=== PATIENT | male | born 1955 | race Caucasian/White ===

== ENCOUNTER 2018-04-27 22:23 | Observation (INO) | payer OTHER ==
--- NOTE | 2018-04-27 22:30 | PDOC ---
History of Present Illness - General Chief Complaint: Pain Stated Complaint: PAIN Time Seen by Provider: 04/27/18 22:27 History Source: Patient Exam Limitations: No Limitations - History of Present Illness Initial Comments: 62 yo M history HTN presents with L arm pain, fever. He states that he received a pneumonia shot 3 days ago. He states that the day after the shot, he started to feel pain in the upper arm. He has been having difficulty sleeping due to pain. He developed fever to 102 at home today. No respiratory symptoms, no dysuria, no abd pain. Past History - Past Medical History Allergies/Adverse Reactions: Allergies Allergy/AdvReac Type Severity Reaction Status Date / Time codeine Allergy Severe Vomiting Verified 04/27/18 22:28 Home Medications: Ambulatory Orders Bupropion HCl [Wellbutrin -] 100 mg PO DAILY 04/28/18 Gabapentin [Neurontin -] 300 mg PO BID 04/28/18 Losartan Potassium 0 mg PO DAILY 04/28/18 Asthma: Yes COPD: No HTN: Yes Other medical history: Gout - Suicide/Smoking/Psychosocial Hx Smoking History: Never smoked Have you smoked in the past 12 months: No Information on smoking cessation initiated: No Hx Alcohol Use: No Drug/Substance Use Hx: No Review of Systems - Review of Systems Able to Perform ROS?: Yes Comments:: GENERAL/CONSTITUTIONAL: +Fever/chills. No weakness. HEAD, EYES, EARS, NOSE AND THROAT: No change in vision. No ear pain or discharge. No sore throat. CARDIOVASCULAR: No chest pain or shortness of breath. RESPIRATORY: No cough, wheezing, or hemoptysis. GASTROINTESTINAL: No nausea, vomiting, diarrhea or constipation. GENITOURINARY: No dysuria, frequency, or change in urination. MUSCULOSKELETAL: +L upper arm swelling and pain. No neck or back pain. SKIN: No rash. NEUROLOGIC: No headache, vertigo, loss of consciousness, or change in strength/ sensation. ENDOCRINE: No increased thirst. No abnormal weight change. HEMATOLOGIC/LYMPHATIC: No anemia, easy bleeding, or history of blood clots. ALLERGIC/IMMUNOLOGIC: No hives or skin allergy. *Physical Exam - Vital Signs Last Vital Signs Temp Pulse Resp BP Pulse Ox 99.6 F 103 H 19 144/93 95 04/27/18 22:25 04/27/18 22:25 04/27/18 22:25 04/27/18 22:25 04/27/18 22:25 - Physical Exam Comments: GENERAL: Awake, alert, and fully oriented, in no acute distress. Obese. HEAD: No signs of trauma EYES: PERRLA, EOMI, sclera anicteric, conjunctiva clear ENT: Auricles normal inspection, hearing grossly normal, nares patent, oropharynx clear without exudates. Moist mucosa NECK: Normal ROM, supple, no lymphadenopathy, JVD, or masses LUNGS: Breath sounds equal, clear to auscultation bilaterally. No wheezes, and no crackles HEART: Regular rate and rhythm, normal S1 and S2, no murmurs, rubs or gallops ABDOMEN: Soft, nontender, normoactive bowel sounds. No guarding, no rebound. No masses EXTREMITIES: L deltoid and biceps muscles firm and tender to palpation, +edema. FROM. Warm to touch, but not erythematous. No crepitus noted. Remainder of extremities with normal range of motion, no edema. No clubbing or cyanosis. No cords, erythema, or tenderness. +Mild edema over the 2nd and 3rd MCP joints to the L hand (previous gout flare as per patient, not temporally related to the arm pain). NEUROLOGICAL: Cranial nerves II through XII grossly intact. Normal speech, normal gait. Motor and sensation intact SKIN: Diaphoretic, normal turgor, no rashes or lesions noted. Moderate Sedation - Procedure Monitoring Vital Signs: Procedure Monitoring Vital Signs Temperature 99.6 F 04/27/18 22:25 Pulse Rate 103 H 04/27/18 22:25 Respiratory Rate 19 04/27/18 22:25 Blood Pressure 144/93 04/27/18 22:25 O2 Sat by Pulse Oximetry (%) 95 04/27/18 22:25 ED Treatment Course - LABORATORY CBC & Chemistry Diagram: 04/27/18 23:00 04/27/18 23:00 Medical Decision Making - Medical Decision Making 04/27/18 22:46 Suspect an intramuscular infection related to recent injection. No signs of necrotizing fasciitis on exam. Will obtain XR to r/o subcutaneous gas. 04/28/18 00:[address] Cruz, hospitalist. I will give ceftriaxone in addition to the clinda per his request. *DC/Admit/Observation/Transfer Diagnosis at time of Disposition: Myositis Qualifiers: Myositis type: infective Myositis location: shoulder Laterality: left Qualified Code(s): M60.012 - Infective myositis, left shoulder - Discharge Dispostion Condition at time of disposition: Stable Decision to Admit order: Yes - Referrals - Patient Instructions - Post Discharge Activity
[2018-04-27] MEDS ORDERED: SODIUM CHLORIDE 1,000 ML IV STA (22:38)
[2018-04-27] MEDS ORDERED: CLINDAMYCIN 600MG PREMIX IVPB 600 MG/50 ML BAG IVPB ONE (23:16)
[2018-04-27] MEDS ORDERED: CLINDAMYCIN PHOSPHATE 600 MG/4 ML VIAL ONE (23:29)
[2018-04-27 23:32] LABS: BASO % 0.1 % (0-2.0); EOS % 2.3 % (0-4.5); HEMOGLOBIN 13.5 GM/dl (11.7-16.9); LYMPH % 8.3 % (8-40); MCH 27.4 pg (25.7-33.7); MCHC 32.2 g/dl (32.0-35.9); MEAN CELL VOLUME 84.9 fl (80-96); MEAN PLT VOLUME 7.9 fl (7.5-11.1); MONO % 10.6 % (3.8-10.2); NEUT % 78.7 % (42.8-82.8); PLATELET COUNT 233 K/MM3 (134-434); RBC 4.95 M/mm3 (4.00-5.60); RDW 14.8 % (11.9-15.9); WHITE BLOOD COUNT 8.7 K/mm3 (4.0-10.8)
[2018-04-27 23:36] LABS: ALBUMIN 4.1 g/dl (3.4-5.0); ALK PHOS 83 U/L (45-117); ANION GAP 13 MMOL/L (8-16); BILIRUBIN,TOTAL 1.7 mg/dl (0.2-1); BLOOD UREA NITROGEN 13 mg/dl (7-18); CALCIUM 9.2 mg/dl (8.5-10); CHLORIDE 98 mmol/L (98-107); CO2 24 mmol/L (21-32); CREATININE 0.9 mg/dl (0.55-1.3); GLUCOSE,RANDOM 132 mg/dl (74-106); POTASSIUM 3.8 mmol/L (3.5-5.1); SGOT/AST 31 U/L (15-37); SGPT/ALT 35 U/L (13-61); SODIUM 135 mmol/L (136-145)
[2018-04-28] MEDS ORDERED: CEFTRIAXONE 1,000 MG in DEXTROSE 5%-WATER - 50 ML IVPB ONE (00:28)
[2018-04-28] MEDS ORDERED: ACETAMINOPHEN 325 MG TABLET (FP) PO PRN (00:30)
[2018-04-28] MEDS ORDERED: cefTRIAXone SODIUM 1 GM VIAL ONE (00:35)
[2018-04-28 02:17] VITALS: BMI 44.9
--- NOTE | 2018-04-28 08:02 | HP ---
CHIEF COMPLAINT: PCP: HISTORY OF PRESENT ILLNESS: ER course was notable for: (1) (2) (3) Recent Travel: PAST MEDICAL HISTORY: PAST SURGICAL HISTORY: Social History: Smoking: Alcohol: Drugs: Family History: Allergies codeine Allergy (Severe, Verified 04/27/18 22:28) Vomiting HOME MEDICATIONS: Home Medications Medication Instructions Recorded Bupropion HCl [Wellbutrin -] 100 mg PO DAILY 04/28/18 Gabapentin [Neurontin -] 300 mg PO BID 04/28/18 Losartan Potassium 0 mg PO DAILY 04/28/18 REVIEW OF SYSTEMS CONSTITUTIONAL: Absent: fever, chills, diaphoresis, generalized weakness, malaise, loss of appetite, weight change HEENT: Absent: rhinorrhea, nasal congestion, throat pain, throat swelling, difficulty swallowing, mouth swelling, ear pain, eye pain, visual changes CARDIOVASCULAR: Absent: chest pain, syncope, palpitations, irregular heart rate, lightheadedness , peripheral edema RESPIRATORY: Absent: cough, shortness of breath, dyspnea with exertion, orthopnea, wheezing, stridor, hemoptysis GASTROINTESTINAL: Absent: abdominal pain, abdominal distension, nausea, vomiting, diarrhea, constipation, melena, hematochezia GENITOURINARY: Absent: dysuria, frequency, urgency, hesitancy, hematuria, flank pain, genital pain MUSCULOSKELETAL: Absent: myalgia, arthralgia, joint swelling, back pain, neck pain SKIN: Absent: rash, itching, pallor HEMATOLOGIC/IMMUNOLOGIC: Absent: easy bleeding, easy bruising, lymphadenopathy, frequent infections ENDOCRINE: Absent: unexplained weight gain, unexplained weight loss, heat intolerance, cold intolerance NEUROLOGIC: Absent: headache, focal weakness or paresthesias, dizziness, unsteady gait, seizure, mental status changes, bladder or bowel incontinence PSYCHIATRIC: Absent: anxiety, depression, suicidal or homicidal ideation, hallucinations. PHYSICAL EXAMINATION Vital Signs - 24 hr 04/27/18 04/27/18 04/28/18 22:25 22:45 00:31 Temperature 99.6 F 98.6 F Pulse Rate 103 H 67 Respiratory 19 19 Rate Blood Pressure 144/93 136/67 O2 Sat by Pulse 95 96 Oximetry (%) 04/28/18 04/28/18 04/28/18 01:50 01:54 04:31 Temperature 98.6 F 97.7 F Pulse Rate 67 65 Respiratory 19 18 Rate Blood Pressure 136/67 142/62 O2 Sat by Pulse 97 97 Oximetry (%) 04/28/18 06:02 Temperature Pulse Rate Respiratory Rate Blood Pressure O2 Sat by Pulse 98 Oximetry (%) GENERAL: Awake, alert, and fully oriented, in no acute distress. HEAD: Normal with no signs of trauma. EYES: Pupils equal, round and reactive to light, extraocular movements intact, sclera anicteric, conjunctiva clear. No lid lag. EARS, NOSE, THROAT: Ears normal, nares patent, oropharynx clear without exudates. Moist mucous membranes. NECK: Normal range of motion, supple without lymphadenopathy, JVD, or masses. LUNGS: Breath sounds equal, clear to auscultation bilaterally. No wheezes, and no crackles. No accessory muscle use. HEART: Regular rate and rhythm, normal S1 and S2 without murmur, rub or gallop. ABDOMEN: Soft, nontender, not distended, normoactive bowel sounds, no guarding, no rebound, no masses. No hepatomegaly or splenomegaly. MUSCULOSKELETAL: Normal range of motion at all joints. No bony deformities or tenderness. No CVA tenderness. UPPER EXTREMITIES: 2+ pulses, warm, well-perfused. No cyanosis. No clubbing. No peripheral edema. LOWER EXTREMITIES: 2+ pulses, warm, well-perfused. No calf tenderness. No peripheral edema. NEUROLOGICAL: Cranial nerves II-XII intact. Normal speech. Normal gait. PSYCHIATRIC: Cooperative. Good eye contact. Appropriate mood and affect. SKIN: Warm, dry, normal turgor, no rashes or lesions noted, normal capillary refill. Laboratory Results - last 24 hr 04/27/18 04/27/18 04/27/18 23:00 23:00 23:00 WBC 8.7 RBC 4.95 Hgb 13.5 Hct 42.0 MCV 84.9 MCH 27.4 MCHC 32.2 RDW 14.8 Plt Count 233 MPV 7.9 Absolute Neuts (auto) 6.9 Neutrophils % 78.7 Lymphocytes % 8.3 Monocytes % 10.6 H Eosinophils % 2.3 Basophils % 0.1 Sodium 135 L Potassium 3.8 Chloride 98 Carbon Dioxide 24 Anion Gap 13 BUN 13 Creatinine 0.9 Creat Clearance w eGFR > 60 Random Glucose 132 H Lactic Acid Calcium 9.2 Total Bilirubin 1.7 H AST 31 ALT 35 Alkaline Phosphatase 83 Creatine Kinase 486 H Creatine Kinase Index 0.8 CK-MB (CK-2) 4.3 H Total Protein 7.0 Albumin 4.1 04/27/18 23:00 WBC RBC Hgb Hct MCV MCH MCHC RDW Plt Count MPV Absolute Neuts (auto) Neutrophils % Lymphocytes % Monocytes % Eosinophils % Basophils % Sodium Potassium Chloride Carbon Dioxide Anion Gap BUN Creatinine Creat Clearance w eGFR Random Glucose Lactic Acid 0.8 Calcium Total Bilirubin AST ALT Alkaline Phosphatase Creatine Kinase Creatine Kinase Index CK-MB (CK-2) Total Protein Albumin ASSESSMENT/PLAN:
[2018-04-28 09:02] VITALS: BP 145/83; PULSE 64; TEMP 98.2
[2018-04-28] MEDS ORDERED: buPROPion HCL 100 MG TABLET PO SCH (10:00)
[2018-04-28] MEDS ORDERED: LOSARTAN POTASSIUM 25 MG TABLET PO SCH (10:00)
[2018-04-28] MEDS ORDERED: GABAPENTIN 300 MG CAPSULE (FP) PO SCH (10:00)
--- NOTE | 2018-04-28 11:00 | HOSP ---
Subjective - Review of Symptoms Events since last encounter: Advised by nursing staff that patient eloped. It is estimated he left the floor sometime between 8:00am and 9:30am. Patient was not seen by this provider prior to his departure. Physical Examination Vital Signs: Vital Signs Temperature 98.2 F 04/28/18 08:00 Pulse Rate 64 04/28/18 08:00 Respiratory Rate 18 04/28/18 08:00 Blood Pressure 145/83 04/28/18 08:00 O2 Sat by Pulse Oximetry (%) 97 04/28/18 08:55 Labs: CBC, BMP 04/27/18 23:00 04/27/18 23:00
== END 2018-04-28 10:10 | disposition left against medical advice (07) ==
LOC: FER 22:23 → FM/S 23:48 → UNDOADMOB 04-28 00:42 → FM/S 04-28 00:42
PROVIDERS: ADMIT Internal Medicine; ATTEND Nurse Practitioner Acute Care
PROC: 3E03329 Introduction of Other Anti-infective into Peripheral Vein, Percutaneous Approach (ICD-10-PCS; principal; 2018-04-27)
PROC: 3E0337Z Introduction of Electrolytic and Water Balance Substance into Peripheral Vein, Percutaneous Approach (ICD-10-PCS; 2018-04-27)
DX: M60.012 Infective myositis, left shoulder (principal); I10 Essential (primary) hypertension; Z88.6 Allergy status to analgesic agent
CPT/HCPCS: 36415; 73060-TC-LT-FY; 80053; 82550; 82553; 83605; 85025; 85651; 86140; 87040; 99284-25; G0378; J7030

== ENCOUNTER 2018-04-28 13:20 | Inpatient (IN) | payer OTHER ==
--- NOTE | 2018-04-28 13:27 | PDOC ---
Attending Attestation - Resident Resident Name: Vicente Nelson - ED Attending Attestation I have performed the following: I have examined & evaluated the patient, The case was reviewed & discussed with the resident, I agree w/resident's findings & plan, Exceptions are as noted - HPI HPI: 04/28/18 15:40 62yo male with pneumococcal vaccine given on . Pt states saturday he developed fevers/sweats. Developed a pain to the L arm on saturday. States by saturday he was having diaphoresis in gnosticism and spiked a fever to 102. Pt was admitted last night to [facility] for iv abx. Pt had to leave today for a but returns still with pain and redness to LUE. On xray performed yesterday- lytic lesion to the L humerus. Pt denies fevers today. C/o sweating at night intermittently. Pt denies wt loss. No cp/sob. No abd pain. No n/v/d. Pt states he has had rib pain to L ribs since early last week. No cp. - Physicial Exam PE: 04/28/18 15:41 Gen: aaox3, nad, ambulatory with a steady gait Heart: +s1s2 reg, no chest wall ttp lungs: cta b/l abd: soft, nt/nd +bs, obese ext: LUE pulses intact, L mid-humerus shows redness, warmth, ttp- cellulitis, FROM of the arm, no shoulder ttp, no elbow ttp - Medical Decision Making 04/28/18 13:27 I, Dr. Cherry Romo, DO, attest that this document has been prepared under my direction and personally reviewed by me in its entirety. I further attest, that it accurately reflects all work, treatment, procedures and medical decision -making performed by me. 04/28/18 15:42 a/p: 62yo male with LUE cellulitis -start iv abx yesterday - received rocephin at 1am today, will give next dose of clinda CRP from yesterday was 9 no fever today will repeat labs, cxr, cultures pending concern for lytic lesion, will send electrophoresis panel will discuss with [facility] 04/28/18 15:46 microblog sent to [facility] for admission 04/28/18 16:18 resident discussed the case with Dr. Foote who accepts pt to service
--- NOTE | 2018-04-28 13:42 | PDOC ---
History of Present Illness - General Chief Complaint: Redness To Affected Area Stated Complaint: REVISIT FOR LEFT ARM REDNESS Time Seen by Provider: 04/28/18 13:22 History Source: Patient, Old Records Exam Limitations: No Limitations - History of Present Illness Initial Comments: HPI: 62 y/o male presenting to ED after leaving the [facility] med[facility]surg floor AMA to attend a . Pt has returned for re-admission. Received Rocephin and Clindamycin last night with concern for myositis versus cellulitis. Pt received PneumoVax in left deltoid last (24 Apr 2018). Expressed concern that the person administering the injection did not wear gloves, but did clean the area with an alcohol wipe. Reports no symptoms until Saturday (27 Apr 2018) when he developed fever (Tmax 102), chills, diaphoresis, and tenderness to left upper arm. Family reportedly noticed rash to face but pt unable to provide details. 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 - Denies recent travel, outdoor activity, wildlife exposure, or exotic pets Medical Hx: - HTN - Asthma - Obesity - Gout Past History - Past Medical History Allergies/Adverse Reactions: Allergies Allergy/AdvReac Type Severity Reaction Status Date / Time codeine AdvReac Severe Vomiting Verified 04/28/18 17:40 Home Medications: Ambulatory Orders Bupropion HCl [Wellbutrin -] 100 mg PO DAILY 04/28/18 Gabapentin [Neurontin -] 300 mg PO BID 04/28/18 Losartan Potassium 0 mg PO DAILY 04/28/18 Asthma: Yes COPD: No HTN: Yes - Suicide/Smoking/Psychosocial Hx Smoking History: Never smoked Have you smoked in the past 12 months: No Hx Alcohol Use: No Drug/Substance Use Hx: No Review of Systems - Review of Systems Able to Perform ROS?: Yes Comments:: In addition to that documented in the HPI above, the additional ROS was obtained : Constitutional: Endorses fevers and chills Eyes: Denies vision changes ENMT: Denies sore throat CV: Endorses pain to left side of chest Resp: Denies SOB GI: Denies vomiting or diarrhea : Denies painful urination MSK: Denies recent trauma Skin: Per HPI Neuro: Denies new numbness or tingling or weakness Endocrine: Denies polyuria Heme: Denies bleeding or bruising *Physical Exam - Vital Signs Last Vital Signs Temp Pulse Resp BP Pulse Ox 98.5 F 68 18 157/94 98 04/28/18 13:22 04/28/18 13:22 04/28/18 13:22 04/28/18 13:22 04/28/18 13:22 - Physical Exam Comments: Constitutional: Well-developed, well-nourished, obese male in no acute distress or obvious discomfort. Found sitting upright on edge of bed. Alert and oriented x4. Answered all questions appropriately and completely. Speech was non-labored , non-pressured. Head: Normocephalic. No obvious external signs of trauma. Eyes: Sclerae white. Ears: Hearing grossly intact. Nose: No nasal discharge. Neck: Supple, trachea is midline. Cardiovascular / Chest: Regular rate and regular rhythm. No murmur, rubs, clicks, or gallops. Peripheral pulses: radial pulses full. Diffuse tenderness to left anterior chest wall. Respiratory: Breathing unlabored. Equal chest rise and fall. Clear to auscultation bilaterally. No stridor, no wheezing, no rhonchi. Neuro: Alert and oriented. Moving all four extremities spontaneously. Gait normal. Skin: Erythema and warmth to left upper arm. No obvious wounds. No purulence. Psych: Affect: appropriate. Mood: normal. Moderate Sedation - Procedure Monitoring Vital Signs: Procedure Monitoring Vital Signs Temperature 98.5 F 04/28/18 13:22 Pulse Rate 68 04/28/18 13:22 Respiratory Rate 18 04/28/18 13:22 Blood Pressure 157/94 04/28/18 13:22 O2 Sat by Pulse Oximetry (%) 98 04/28/18 13:22 ED Treatment Course - LABORATORY CBC & Chemistry Diagram: 04/28/18 15:15 04/28/18 15:15 Medical Decision Making - Medical Decision Making *Reviewed vital signs, nursing notes, and prior visit documentation (if available). 62 y/o male returning to after leaving AMA to attend a . Lucency noted left humerus on plain film. CRP elevated with normal ESR. Will repeat CRP , CBC, and chemistries to trend. Rocephin received at 01:00 this AM. Repeat dose not indicated. Will order clindamycin for continuation of q8h dosing. Will order CXR to evaluate for additional lytic lesions. Additionally, will order [place]/Lambda chains and serum protein electrophoresis to evaluate for possible multiple myeloma. Noted Ca+ was within normal limits yesterday. CXR unremarkable for additional lytic lesions. CBC unremarkable for anemia or leukocytosis. CMP unremarkable for electrolyte derangement. LFTs not elevated. T. Bili mildly elevated, but downtrended from yesterday. Will defer to medicine team to trend. BUN and Cr at baseline. eGFR >60. 16:[address] Foote. Verbally appraised of the pts HPI, ED course, and current plan of management. Will follow on pending labs. *DC/Admit/Observation/Transfer Diagnosis at time of Disposition: Lytic bone lesions on xray Cellulitis Qualifiers: Site of cellulitis: extremity Site of cellulitis of extremity: upper extremity Laterality: left Qualified Code(s): L03.114 - Cellulitis of left upper limb - Discharge Dispostion Condition at time of disposition: Good Decision to Admit order: Yes - Referrals - Patient Instructions - Post Discharge Activity
[2018-04-28] MEDS ORDERED: CLINDAMYCIN 600MG PREMIX IVPB 600 MG/50 ML BAG IVPB ONE (14:01)
[2018-04-28] MEDS ORDERED: CLINDAMYCIN PHOSPHATE 600 MG/4 ML VIAL ONE (14:15)
[2018-04-28 15:51] LABS: HEMATOCRIT 40.1 % (35.4-49); MCH 27.5 pg (25.7-33.7); MCHC 32.5 g/dl (32.0-35.9); MEAN CELL VOLUME 84.7 fl (80-96); MEAN PLT VOLUME 8.5 fl (7.5-11.1); PLATELET COUNT 209 K/MM3 (134-434); RBC 4.74 M/mm3 (4.00-5.60); RDW 14.8 % (11.9-15.9); WHITE BLOOD COUNT 6.9 K/mm3 (4.0-10.8)
[2018-04-28 15:58] LABS: ALBUMIN 3.8 g/dl (3.4-5.0); ALK PHOS 76 U/L (45-117); ANION GAP 10 MMOL/L (8-16); BILIRUBIN,TOTAL 1.3 mg/dl (0.2-1); BLOOD UREA NITROGEN 14 mg/dl (7-18); CHLORIDE 101 mmol/L (98-107); CO2 25 mmol/L (21-32); CREATININE 0.8 mg/dl (0.55-1.3); GLUCOSE,RANDOM 113 mg/dl (74-106); MAGNESIUM 2.2 mg/dL (1.8-2.4); SGOT/AST 36 U/L (15-37); SGPT/ALT 30 U/L (13-61); SODIUM 136 mmol/L (136-145); TOT PROT 6.7 g/dl (6.4-8.2)
[2018-04-28] MEDS ORDERED: VANCOMYCIN HCL 1,500 MG in DEXTROSE 5%-WATER - 500 ML IVPB ONE (16:58)
[2018-04-28] MEDS ORDERED: PIPERACILLIN/TAZOB 4.5 GM 4.5 GM in DEXTROSE 5%-WATER 100 ML IVPB ONE (18:02)
--- NOTE | 2018-04-28 18:02 | HP ---
CHIEF COMPLAINT:left arm pain PCP: HISTORY OF PRESENT ILLNESS: 62yo man with gout reported getting pneumovax injection into left upper extremity this past , and the next day developed left arm pain, erythema , and saturday developed fever that he measured 102.2F. Pain was worse with movement of his arm. At worst pain was 9/10 or 10/10. 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 PAST SURGICAL HISTORY: left rotator cuff surgery 1 year ago, right knee replacement Social History: Smoking: no Alcohol: no Drugs: no Family History: mother with pancreatic cancer, father with heart disease Allergies codeine Adverse Reaction (Severe, Verified 04/28/18 17:40) Vomiting HOME MEDICATIONS: Home Medications Medication Instructions Recorded Bupropion HCl [Wellbutrin -] 100 mg PO DAILY 04/28/18 Gabapentin [Neurontin -] 300 mg PO BID 04/28/18 Losartan Potassium 0 mg PO DAILY 04/28/18 REVIEW OF SYSTEMS CONSTITUTIONAL: Absent: , generalized weakness, malaise, loss of appetite, weight change present- fever, chills, diaphoresis HEENT: Absent: rhinorrhea, nasal congestion, throat pain, throat swelling, difficulty swallowing, mouth swelling, ear pain, eye pain, visual changes CARDIOVASCULAR: Absent: chest pain, syncope, palpitations, irregular heart rate, lightheadedness , peripheral edema RESPIRATORY: Absent: cough, shortness of breath, dyspnea with exertion, orthopnea, wheezing, stridor, hemoptysis GASTROINTESTINAL: Absent: abdominal pain, abdominal distension, nausea, vomiting, diarrhea, constipation, melena, hematochezia GENITOURINARY: Absent: dysuria, frequency, urgency, hesitancy, hematuria, flank pain, genital pain MUSCULOSKELETAL: Absent: , arthralgia, back pain, neck pain present- myalgia, joint swelling, SKIN: Absent: rash, itching, pallor HEMATOLOGIC/IMMUNOLOGIC: Absent: easy bleeding, easy bruising, lymphadenopathy, frequent infections ENDOCRINE: Absent: unexplained weight gain, unexplained weight loss, heat intolerance, cold intolerance NEUROLOGIC: Absent: headache, focal weakness or paresthesias, dizziness, unsteady gait, seizure, mental status changes, bladder or bowel incontinence PSYCHIATRIC: Absent: anxiety, depression, suicidal or homicidal ideation, hallucinations. PHYSICAL EXAMINATION Vital Signs - 24 hr 04/28/18 13:22 Temperature 98.5 F Pulse Rate 68 Respiratory 18 Rate Blood Pressure 157/94 O2 Sat by Pulse 98 Oximetry (%) GENERAL: Awake, alert, and fully oriented, in no acute distress, obese HEAD: Normal with no signs of trauma. EYES: Pupils equal, round and reactive to light, extraocular movements intact, sclera anicteric, conjunctiva clear. No lid lag. EARS, NOSE, THROAT: Ears normal, nares patent, oropharynx clear without exudates. Moist mucous membranes. NECK: Normal range of motion, supple without lymphadenopathy, JVD, or masses. LUNGS: Breath sounds equal, clear to auscultation bilaterally. No wheezes, and no crackles. No accessory muscle use. HEART: Regular rate and rhythm, normal S1 and S2 without murmur, rub or gallop. ABDOMEN: Soft, obese nontender, not distended, normoactive bowel sounds, no guarding, no rebound, no masses. No hepatomegaly or splenomegaly. MUSCULOSKELETAL: Normal range of motion at all joints. No bony deformities or tenderness. No CVA tenderness. UPPER EXTREMITIES: 2+ pulses, warm, well-perfused. No cyanosis. No clubbing. No peripheral edema, left lateral arm erythematous, warm to touch, some tenderness LOWER EXTREMITIES: 2+ pulses, warm, well-perfused. No calf tenderness. +1 pedal edema b/l, right knee vertical scar NEUROLOGICAL: Cranial nerves II-XII intact. Normal speech. Normal gait. PSYCHIATRIC: Cooperative. Good eye contact. Appropriate mood and affect. SKIN: Warm, dry, normal turgor, no rashes or lesions noted, normal capillary refill. Laboratory Results - last 24 hr 04/28/18 04/28/18 15:15 15:15 WBC 6.9 RBC 4.74 Hgb 13.0 Hct 40.1 MCV 84.7 MCH 27.5 MCHC 32.5 RDW 14.8 Plt Count 209 MPV 8.5 Absolute Neuts (auto) 5.0 Neutrophils % No Result Required. Lymphocytes % No Result Required. Sodium 136 Potassium 4.0 Chloride 101 Carbon Dioxide 25 Anion Gap 10 BUN 14 Creatinine 0.8 Creat Clearance w eGFR > 60 Random Glucose 113 H Calcium 9.0 Magnesium 2.2 Total Bilirubin 1.3 H AST 36 ALT 30 Alkaline Phosphatase 76 Total Protein 6.7 Albumin 3.8 imaging studies reviewed ASSESSMENT/PLAN: #Cellulitis s/p vaccine injection- in same spot as injection as per patient. May be myositis and should r/o osteomyelitis given lytic lesion found in cortex of left humerus. This is NOT compartment syndrome or gas gangrene. radial pulse well palpable, VS are normal and do not suspect systemic infection. Less likely multiple myeloma or mets from occult malignancy. -admit to med/surg -blood cultures from 04/27 are pending- pt eloped and then returned to ER -vancomycin -zosyn -ID and ortho consults- for biospy of lytic lesion -ibuprofen prn for pain -consider MRI of left upper extremity to evaluate soft tissues and bone better #HTN -c/w valsartan #Neuropathy -c/w gabapentin #DVT ppx -heparin sc Visit type - Emergency Visit Emergency Visit: Yes ED Registration Date: 04/28/18 Care time: The patient presented to the Emergency Department on the above date and was hospitalized for further evaluation of their emergent condition. - New Patient This patient is new to me today: Yes Date on this admission: 04/28/18 - Critical Care Critical Care patient: No
[2018-04-28] MEDS ORDERED: IBUPROFEN 400 MG TABLET (FP) PO PRN (18:04)
[2018-04-28 18:35] VITALS: BMI 45.0
[2018-04-28] MEDS ORDERED: PIPERACILLIN/TAZOBACTAM 4.5 GM VIAL IVPB ONE (18:43)
[2018-04-28] MEDS ORDERED: DEXTROSE 5%-WATER 100 ML IVPB ONE (18:43)
[2018-04-28 19:46] LABS: PLATELET ESTIMATE ADEQUATE
[2018-04-28] MEDS: GABAPENTIN 300 MG CAPSULE (FP) PO SCH (21:33)
[2018-04-28] MEDS: HEPARIN NA (PORCINE) 5,000 UNITS/ML 1ML VIAL SQ SCH (21:33)
--- NOTE | 2018-04-29 05:01 | PN ---
Physical Exam: SUBJECTIVE: Patient seen and examined OBJECTIVE: Vital Signs Period Temp Pulse Resp BP Sys/Catalan Pulse Ox Last 24 Hr 98.2 F-99.0 F 68-96 17-19 142-157/58-94 94-98 GENERAL: The patient is awake, alert, and fully oriented, in no acute distress. HEAD: Normal with no signs of trauma. EYES: PERRL, extraocular movements intact, sclera anicteric, conjunctiva clear. No ptosis. ENT: Ears normal, nares patent, oropharynx clear without exudates, moist mucous membranes. NECK: Trachea midline, full range of motion, supple. LUNGS: Breath sounds equal, clear to auscultation bilaterally, no wheezes, no crackles, no accessory muscle use. HEART: Regular rate and rhythm, S1, S2 without murmur, rub or gallop. ABDOMEN: Soft, nontender, nondistended, normoactive bowel sounds, no guarding, no rebound, no hepatosplenomegaly, no masses. EXTREMITIES: 2+ pulses, warm, well-perfused, no edema. NEUROLOGICAL: Cranial nerves II through XII grossly intact. Normal speech, gait not observed. PSYCH: Normal mood, normal affect. SKIN: Warm, dry, normal turgor, no rashes or lesions noted Laboratory Results - last 24 hr 04/28/18 04/28/18 15:15 15:15 WBC 6.9 RBC 4.74 Hgb 13.0 Hct 40.1 MCV 84.7 MCH 27.5 MCHC 32.5 RDW 14.8 Plt Count 209 MPV 8.5 Absolute Neuts (auto) 5.0 Neutrophils % No Result Required. Neutrophils % (Manual) 79.0 Band Neutrophils % 1.0 Lymphocytes % No Result Required. Lymphocytes % (Manual) 8.0 Monocytes % (Manual) 9 Eosinophils % (Manual) 3.0 Platelet Estimate Adequate Sodium 136 Potassium 4.0 Chloride 101 Carbon Dioxide 25 Anion Gap 10 BUN 14 Creatinine 0.8 Creat Clearance w eGFR > 60 Random Glucose 113 H Calcium 9.0 Magnesium 2.2 Total Bilirubin 1.3 H AST 36 ALT 30 Alkaline Phosphatase 76 Total Protein 6.7 Albumin 3.8 Active Medications Generic Name Dose Route Start Last Admin Trade Name Freq PRN Reason Stop Dose Admin Bupropion HCl 100 mg 04/29/18 10:00 Wellbutrin - PO DAILY JAQUAN Gabapentin 300 mg 04/28/18 22:00 04/28/18 21:33 Neurontin - PO 300 mg BID JAQUAN Administration Heparin Sodium (Porcine) 5,000 unit 04/28/18 22:00 04/28/18 21:33 Heparin - SQ 5,000 unit BID JAQAUN Administration Ibuprofen 400 mg 04/28/18 18:04 04/28/18 20:01 Motrin - PO 400 mg Q6H PRN Administration PAIN LEVEL 1-5 Losartan Potassium 25 mg 04/29/18 10:00 Cozaar - PO DAILY [facility] ASSESSMENT/PLAN:
[2018-04-29] MEDS ORDERED: PIPERACILLIN/TAZOB 3.375 GM 3.375 GM in DEXTROSE 5%-WATER - 50 ML IVPB SCH (05:15)
[2018-04-29] MEDS ORDERED: DEXTROSE 5%-WATER - 50 ML IVPB ONE (06:57)
[2018-04-29] MEDS ORDERED: PIPERACILLIN/TAZOBACTAM 3.375 GM VIAL IVPB ONE (06:57)
[2018-04-29 07:46] LABS: HEMATOCRIT 38.7 % (35.4-49); HEMOGLOBIN 12.6 GM/dl (11.7-16.9); MCH 27.8 pg (25.7-33.7); MCHC 32.5 g/dl (32.0-35.9); MEAN CELL VOLUME 85.7 fl (80-96); MEAN PLT VOLUME 8.3 fl (7.5-11.1); PLATELET COUNT 187 K/MM3 (134-434); RBC 4.52 M/mm3 (4.00-5.60); RDW 14.5 % (11.9-15.9); WHITE BLOOD COUNT 5.9 K/mm3 (4.0-10.8)
[2018-04-29 07:50] LABS: ANION GAP 7 MMOL/L (8-16); BLOOD UREA NITROGEN 20 mg/dl (7-18); CALCIUM 8.6 mg/dl (8.5-10); CHLORIDE 104 mmol/L (98-107); CO2 28 mmol/L (21-32); CREATININE 1.1 mg/dl (0.55-1.3); GLUCOSE,RANDOM 135 mg/dl (74-106); POTASSIUM 3.7 mmol/L (3.5-5.1); SODIUM 139 mmol/L (136-145)
--- NOTE | 2018-04-29 09:52 | PN ---
Progress Note (short form) - Note Progress Note: ID CONSULT DICTATED LOCALIZED INJECTION SITE REACTION L UE NO EVIDENCE OF CELLULITIS OBSERVE OFF ANTIBIOTICS ANALGESICS/ WARM COMPRESSES PRN
[2018-04-29] MEDS ORDERED: buPROPion HCL 100 MG TABLET PO SCH (10:00)
[2018-04-29] MEDS ORDERED: LOSARTAN POTASSIUM 25 MG TABLET PO SCH (10:00)
[2018-04-29] MEDS: HEPARIN NA (PORCINE) 5,000 UNITS/ML 1ML VIAL SQ SCH (10:30)
[2018-04-29] MEDS: GABAPENTIN 300 MG CAPSULE (FP) PO SCH (10:30)
[2018-04-29] MEDS ORDERED: PT OWN MED DRAWER 7, Y5N ONE (11:11)
--- NOTE | 2018-04-29 11:38 | EKG ---
Test Reason : Blood Pressure : / mmHG Vent. Rate : 067 BPM Atrial Rate : 067 BPM P-R Int : 234 ms QRS Dur : 106 ms QT Int : 396 ms P-R-T Axes : 065 -11 015 degrees QTc Int : 418 ms SINUS RHYTHM WITH 1ST DEGREE A-V BLOCK OTHERWISE NORMAL ECG WHEN COMPARED WITH ECG OF 15-NOV-2007 08:36, NO SIGNIFICANT CHANGE WAS FOUND Confirmed by Mason Mendez MD ([id number]) on 04/29/2018 11:37:30 AM Referred By: DR BARKSDALE Confirmed By:Mason Mendez MD
[2018-04-29 14:01] VITALS: BP 152/85; PULSE 63; TEMP 98
--- NOTE | 2018-04-29 15:31 | CONSULT ---
Consult - text type - Consultation Consultation Note: FULL CONSULT DICTATED IMP: IMPROVING LEFT SHOULDER ON ABX, ? 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
--- NOTE | 2018-04-29 15:40 | DS ---
Physical Exam: SUBJECTIVE: Patient seen and examined OBJECTIVE: Vital Signs Period Temp Pulse Resp BP Sys/Catalan Pulse Ox Last 24 Hr 97.6 F-99.0 F 59-96 16-20 142-157/58-94 94-98 PHYSICAL EXAM GENERAL: The patient is awake, alert, and fully oriented, in no acute distress. HEAD: Normal with no signs of trauma. EYES: PERRL, extraocular movements intact, sclera anicteric, conjunctiva clear. ENT: Ears normal, nares patent, oropharynx clear without exudates, moist mucous membranes. NECK: Trachea midline, full range of motion, supple. LUNGS: Breath sounds equal, clear to auscultation bilaterally, no wheezes, no crackles, no accessory muscle use. HEART: Regular rate and rhythm, S1, S2 without murmur, rub or gallop. ABDOMEN: Soft, nontender, nondistended, normoactive bowel sounds, no guarding, no rebound, no hepatosplenomegaly, no masses. EXTREMITIES: 2+ pulses, warm, well-perfused, no edema. NEUROLOGICAL: Cranial nerves II through XII grossly intact. Normal speech, gait not observed. PSYCH: Normal mood, normal affect. SKIN: Warm, dry, normal turgor, no rashes or lesions noted. LABS Laboratory Results - last 24 hr 04/28/18 04/28/18 04/29/18 15:15 15:15 07:05 WBC 6.9 5.9 RBC 4.74 4.52 Hgb 13.0 12.6 Hct 40.1 38.7 MCV 84.7 85.7 MCH 27.5 27.8 MCHC 32.5 32.5 RDW 14.8 14.5 Plt Count 209 187 MPV 8.5 8.3 Absolute Neuts (auto) 5.0 Neutrophils % No Result Required. Neutrophils % (Manual) 79.0 Band Neutrophils % 1.0 Lymphocytes % No Result Required. Lymphocytes % (Manual) 8.0 Monocytes % (Manual) 9 Eosinophils % (Manual) 3.0 Platelet Estimate Adequate Sodium 136 Potassium 4.0 Chloride 101 Carbon Dioxide 25 Anion Gap 10 BUN 14 Creatinine 0.8 Creat Clearance w eGFR > 60 Random Glucose 113 H Calcium 9.0 Magnesium 2.2 Total Bilirubin 1.3 H AST 36 ALT 30 Alkaline Phosphatase 76 Total Protein 6.7 Albumin 3.8 04/29/18 07:05 WBC RBC Hgb Hct MCV MCH MCHC RDW Plt Count MPV Absolute Neuts (auto) Neutrophils % Neutrophils % (Manual) Band Neutrophils % Lymphocytes % Lymphocytes % (Manual) Monocytes % (Manual) Eosinophils % (Manual) Platelet Estimate Sodium 139 Potassium 3.7 Chloride 104 Carbon Dioxide 28 Anion Gap 7 L BUN 20 H Creatinine 1.1 Creat Clearance w eGFR > 60 Random Glucose 135 H Calcium 8.6 Magnesium Total Bilirubin AST ALT Alkaline Phosphatase Total Protein Albumin HOSPITAL COURSE: Date of Admission:04/28/18 Date of Discharge: 04/29/18 Minutes to complete discharge: 35 Discharge Summary Reason For Visit: LYTIC LESION OF BONE ON X-RAY, CELLULITIS Current Active Problems Cellulitis (Acute) Lytic bone lesions on xray (Acute) Condition: Good - Instructions Referrals: Santiago Ríos [Primary Care Provider] - - Home Medications Comprehensive Discharge Medication List: Ambulatory Orders Bupropion HCl [Wellbutrin -] 100 mg PO DAILY 04/28/18 Gabapentin [Neurontin -] 300 mg PO BID 04/28/18 Losartan Potassium 0 mg PO DAILY 04/28/18 This patient is new to me today: Yes Date on this admission: 04/29/18 Emergency Visit: Yes ED Registration Date: 04/28/18 Care time: The patient presented to the Emergency Department on the above date and was hospitalized for further evaluation of their emergent condition. Critical Care patient: No - Discharge Referral Referred to [facility] No
[2018-04-29] MEDS ORDERED: HEPARIN NA (PORCINE) 5,000 UNITS/ML 1ML VIAL SQ SCH (18:00)
--- NOTE | 2018-04-29 20:14 | CONS ---
DATE OF CONSULTATION: 04/29/2018 ORTHOPEDIC CONSULTATION HISTORY OF PRESENT ILLNESS: The patient is a 62-year-old male status post vaccination with a Pneumovax in his left arm complaining of increased pain and swelling and fever. The patient was admitted for IV antibiotics and was doing much, much better. Upon reviewing the x-rays, radiology revealed that there was a small lytic lesion in the mid medial aspect of the mid humerus with no periosteal reaction which necessitated the orthopedic evaluation. PHYSICAL EXAMINATION: EXTREMITIES: The patient has swelling in his left arm, has markedly improved from previously. No erythema. Range of motion is completely restored. Nontender clavicle AC joint acromion. Some tenderness of the deltoid laterally. Has full range of motion fingers neurovascularly intact. . X-rays do show a small punctate lytic lesion in the humeral cortex at the mid aspect. No other lesions are seen in the rest of the humerus. IMPRESSION: 1. Improving left arm pain on antibiotics after receiving a Pneumovax vaccination. This seems to be self limiting and being controlled by IV antibiotics. Patient will be transferred to p.o. antibiotics and then discharged home. 2. Lesion left humeral shaft. Patient has had numerous x-rays at [facility] where his orthopedist is located. He had a rotator cuff in the past, also had a right total knee replacement. I believe that is the appropriate location for him to have humeral lesion evaluated. It runs the gamut of being completely benign to being a lesion associated with multiple myelomas, something more ominous. Patient needs complete workup to evaluate this lesion. I referred him to Dr. Arevalo, who is an orthopedic oncologist at [facility]. He and his both work at [facility] as well as previous orthopedic cases and x-rays at [facility], they can compare his x-rays from our institution to his previous x-rays and do the appropriate workup there. We have given him Dr. Arevalo's contact information and encouraged him to make an expeditious appointment upon discharge. I have informed both of them that if for some reason they cannot have that evaluation, they should contact my office [facility], and I will make the appropriate arrangements for her. JUAN CARLOS WANG M.D. [id number]
[2018-04-30 00:07] LABS: FREE KAPPA,SERUM 21.9 mg/L (3.3-19.4)
--- NOTE | 2018-04-30 16:29 | CONS ---
DATE OF CONSULTATION: 04/29/2018 INFECTIOUS DISEASE CONSULTATION HISTORY OF PRESENT ILLNESS: The patient is a 62-year-old male evaluated for possible cellulitis of the left upper extremity. The patient received a pneumococcal vaccination on April. Approximately 24 hours later he had developed fevers, sweats, and pain in his left upper extremity. He reported developing fever up to 102 at home. He presented to the emergency room, where he was admitted on April 27 for suspected cellulitis. He was treated with vancomycin and Zosyn. On the following day he eloped. He returned to the hospital for further assessment. He continued to complain of discomfort in the left upper extremity. An x-ray of the left humerus showed a lucency. Orthopedic evaluation was requested. He has been afebrile with a normal white blood cell count. Blood cultures obtained April 27, no growth. PAST MEDICAL HISTORY: Positive for hypertension, asthma, gouty arthritis, history of PE in the past. PAST SURGICAL HISTORY: Status post spinal surgery. ALLERGIES: CODEINE. MEDICATION: Include Wellbutrin, Neurontin, losartan. 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 He is a nonsmoker and nondrinker. SYSTEMS REVIEW: Neurologic: No loss of consciousness, seizure activity, focal weakness. Cardiac: Negative for chest pain or palpitations. Respiratory: Negative for cough or sputum production. Gastrointestinal: Negative vomiting or diarrhea. Genitourinary: Negative for urinary tract infection. LABORATORY DATA: White count 5.9, hematocrit 38.7, platelets 187, BUN 20, creatinine 1.1. X-ray of the humerus shows no sign of subcutaneous air, lucent lesion in the proximal left humeral shaft. Blood cultures negative. PHYSICAL EXAMINATION: General: Obese. Nontoxic appearing. Vital signs: Temperature 97.6, blood pressure 149/78, pulse 59 regular, respirations 20 per minute. HEENT: Sclerae anicteric. Cardiovascular: Heart sounds S1, S2. Lungs: Clear. Abdomen: Soft, nontender. Extremities: Examination of the left upper extremity, there is slight tenderness present over the deltoid area, minimal skin induration. There is no erythema or warmth. No crepitus or fluctuance. No axillary adenopathy. IMPRESSION: 1. Localized injection site reaction, left upper extremity. 2. No evidence of cellulitis. 3. Bone lesion of unclear etiology. Would observe off antibiotic therapy. No evidence of active infection at the site or systemic infection. Continue analgesics, warm compresses as needed. Orthopedic evaluation of bone lesion found on x-ray. Thank you for the kind referral. JULIO STAPLES M.D. PORTIA/[id number]
== END 2018-04-29 16:25 | disposition home or self-care (01) | DRG 603 ==
LOC: FER 13:20 → FM/S 16:12 → OBSVTOIN 17:52
PROVIDERS: ADMIT Internal Medicine; ATTEND Nurse Practitioner Acute Care
DX: L03.114 Cellulitis of left upper limb (principal); I10 Essential (primary) hypertension; M10.9 Gout, unspecified; G62.9 Polyneuropathy, unspecified; D49.89 Neoplasm of unspecified behavior of other specified sites; M89.9 Disorder of bone, unspecified; Z96.651 Presence of right artificial knee joint
CPT/HCPCS: 36415; 71046-TC-FY; 71260-TC; 80048; 80053; 83735; 83883; 84155; 84165; 85025; 85027; 93005; 99282-25; G0378; J1644

== ENCOUNTER 2019-09-24 04:52 | Day surgery (SDC) | payer OTHER ==
[2019-09-23 13:04] VITALS: BMI 45.0
[2019-09-24] MEDS ORDERED: LIDOCAINE HCL/PF 2% SDV 5ML VIAL ONE (08:21)
[2019-09-24] MEDS ORDERED: PROPOFOL 20 ML ONE ×2 (08:22)
[2019-09-24] MEDS ORDERED: fentaNYL CITRATE 250 MCG/5 ML VIAL ONE (08:22)
[2019-09-24] MEDS ORDERED: SUCCINYLCHOLINE CHLORIDE 200 MG/10 ML SYRINGE ONE (08:23)
[2019-09-24] MEDS ORDERED: MIDAZOLAM HCL 2 MG/2 ML SINGLE DOSE VIAL ONE (09:21)
[2019-09-24] MEDS ORDERED: DEXAMETHASONE SOD PHOSPHATE 4 MG/1 ML VIAL ONE (09:21)
[2019-09-24] MEDS ORDERED: KETOROLAC TROMETHAMINE 30 MG/1 ML VIAL ONE (09:21)
[2019-09-24] MEDS ORDERED: oxyCODONE HCL 5 MG TABLET PO PRN (09:23)
--- NOTE | 2019-09-24 09:25 | OP ---
Operative Note - Note: Operative Date: 09/24/19 Pre-Operative Diagnosis: LK stone Post-Operative Diagnosis: Same as Pre-op Anesthesia: General Specimens Removed: stone frags Estimated Blood Loss (mls): 0 Operative Report Dictated: Yes
[2019-09-24] MEDS ORDERED: DEXTROSE 5%-0.45% SALINE 1,000 ML IV SCH (09:30)
[2019-09-24] MEDS ORDERED: PROMETHAZINE HCL 25 MG/1 ML VIAL IVPB PRN (09:37)
[2019-09-24 12:31] VITALS: BP 132/80; PULSE 67; TEMP 97.6
--- NOTE | 2019-09-24 22:10 | OP ---
DATE OF OPERATION: 09/24/2019 PREOPERATIVE DIAGNOSIS: Left ureteroscopy, laser lithotripsy, stone basketing, and stent placement. POSTOPERATIVE DIAGNOSIS: Left ureteroscopy, laser lithotripsy, stone basketing, and stent placement. PROCEDURE: Left ureteroscopy, laser lithotripsy, stone basketing, and stent placement. SURGEON: Verona Blair MD INDICATIONS: Patient is a 64-year-old male with recurrent nephrolithiasis status post treatment of large right kidney stone burden several months ago and now for treatment of left kidney stone burden. He has an approximately 7- to 8-mm stone in the lower pole of the left kidney. After reviewing treatment options, patient elected to undergo a ureteroscopy with laser lithotripsy and stent placement. Risks, benefits, and alternatives were discussed in detail including risks of bleeding, infection, stricture formation, persistent stone burden, need for additional procedure, potential injury to adjacent organs. DESCRIPTION OF PROCEDURE: After informed consent was obtained, patient was taken to the OR, placed supine upon the table. After cardiac monitoring was administered, general anesthesia was established. He was prepped and draped in dorsal lithotomy position. He was given 500 mg of Levaquin IV. At this point, the rigid cystoscope was inserted into urethra without difficulty, and the bladder was visualized. No tumors or stones were noted in bladder. Attention was turned to the left ureteral orifice. This was intubated with ureteral catheter and contrast injected for retrograde pyelogram. There was no hydronephrosis. There was a stone noted in the lower pole approximately 8 mm in size. Guidewire was advanced into the renal pelvis. Over the guidewire, a dual-lumen catheter was advanced. Over the dual-lumen catheter, a 2nd guidewire was advanced into the kidney. Over the 2nd guidewire, a flexible ureteroscope was advanced into the kidney. The entire kidney was inspected. The only stone noted was an approximately 8-mm stone in the lower pole. Using the 200-micron laser fiber, the stone was pulverized to fine dust into 1- to 2-mm fragments and then 1 of these fragments removed with the stone basket and sent to Pathology for analysis. Repeat ureteroscopy revealed no evidence of any residual large stone fragments. Ureteroscope was then removed, and a 7-Swedish, 10-mm double pigtail stent was then advanced in a monorail fashion. Fluoroscopy confirmed stent to be in good position. Patient awoken from anesthesia and transferred to recovery in stable condition. There were no complications. Estimated blood loss was minimal. VERONA BLAIR M.D. [facility]GE [id number]
--- NOTE | 2019-09-25 19:44 | PATH ---
Surgical Pathology Report Patient Name: ANDRES VILLALBA Med. Rec. #: [id number] /Age/Gender: 1955 (Age: 64) / M Account: [id number] Location: [facility] Taken: 09/24/2019 Received: 09/24/2019 Reported: 09/25/2019 Physicians: Pastor Loyola M.D. Specimen(s) Received LEFT KIDNEY STONE Clinical History Calculus of kidney Final Diagnosis KIDNEY STONE, LEFT, LASER LITHOTRIPSY: RENAL CALCULI. MACROSCOPIC DIAGNOSIS. Electronically Signed Alma Burger M.D. Gross Description Received fresh labeled "left kidney stone," is a 0.1 cm in greatest dimension cadena, irregular calculus which is sent for chemical analysis. /09/24/2019 saudi/09/24/2019
== END 2019-09-24 12:05 | disposition home or self-care (01) ==
LOC: JASU-SURG 04:52
PROVIDERS: ATTEND Urology
PROC: 0TC48ZZ Extirpation of Matter from Left Kidney Pelvis, Via Natural or Artificial Opening Endoscopic (ICD-10-PCS; principal; 2019-09-24 08:00)
PROC: 0T778DZ Dilation of Left Ureter with Intraluminal Device, Via Natural or Artificial Opening Endoscopic (ICD-10-PCS; 2019-09-24 08:00)
DX: N20.0 Calculus of kidney (principal)
CPT/HCPCS: 88300-TC; 94760

== ENCOUNTER 2021-11-02 21:27 | Inpatient (IN) | payer OTHER ==
[2021-11-02] MEDS ORDERED: ONDANSETRON *ODT* 4 MG TABLET SL ONE (23:45)
[2021-11-03 00:05] VITALS: RESP 18
[2021-11-03] MEDS ORDERED: ONDANSETRON *ODT* 4 MG TABLET ONE (00:32)
[2021-11-03 01:00] LABS: BASO % 0.3 % (0-2.0); EOS % 5.6 % (0-4.5); HEMATOCRIT 41.8 % (35.4-49); HEMOGLOBIN 13.4 GM/dL (11.7-16.9); LYMPH % 20.3 % (8-40); MCH 24.9 pg (25.7-33.7); MCHC 32.2 g/dl (32.0-35.9); MEAN CELL VOLUME 77.4 fl (80-96); MEAN PLT VOLUME 7.5 fl (7.5-11.1); MONO % 12.4 % (3.8-10.2); NEUT % 61.4 % (42.8-82.8); PLATELET COUNT 177 10^3/uL (134-434); RBC 5.39 M/mm3 (4.00-5.60); RDW 17.5 % (11.9-15.9); WHITE BLOOD COUNT 5.1 K/mm3 (4.0-10.0)
[2021-11-03 01:08] LABS: INR 1.09 (0.83-1.09); PROTHROMBIN TIME (PATIENT) 12.5 SEC (9.7-13.0)
[2021-11-03 01:10] LABS: ACTIVATED PTT 33.2 SECONDS (25.2-36.5)
[2021-11-03 01:23] LABS: BLOOD UREA NITROGEN 16.7 mg/dL (7-18)
[2021-11-03 01:24] LABS: ALBUMIN 3.3 g/dl (3.4-5.0)
[2021-11-03 01:27] LABS: CREATININE 0.8 mg/dL (0.55-1.3)
[2021-11-03 01:28] LABS: BILIRUBIN,TOTAL 0.6 mg/dL (0.2-1); TOT PROT 7.6 g/dl (6.4-8.2)
[2021-11-03] MEDS ORDERED: HEPARIN NA (PORCINE) 5,000 UNITS/ML 1ML VIAL IVPUSH ONE (02:42)
[2021-11-03] MEDS ORDERED: HEPARIN - 25,000 UNIT in SODIUM CHLORIDE 495 ML IV SCH (02:45)
[2021-11-03] MEDS ORDERED: HEPARIN INFUSION - 25,000 UNITS/500 ML INFUS.BAG IVPB ONE (02:58)
[2021-11-03] MEDS ORDERED: HEPARIN NA (PORCINE) 5,000 UNITS/ML 1ML VIAL ONE (03:02)
[2021-11-03] MEDS ORDERED: ENOXAPARIN NA (PORCINE) 40 MG/0.4 ML DISP.SYRIN SQ ONE (03:40)
[2021-11-03] MEDS ORDERED: ENOXAPARIN NA (PORCINE) 60 MG/0.6 ML DISP.SYRIN SQ ONE (04:03)
[2021-11-03] MEDS ORDERED: ENOXAPARIN NA (PORCINE) 100 MG/1 ML DISP.SYRIN SQ ONE (04:03)
[2021-11-03 08:18] LABS: BASO % 0.5 % (0-2.0); HEMATOCRIT 37.5 % (35.4-49); HEMOGLOBIN 12.6 GM/dL (11.7-16.9); LYMPH % 25.8 % (8-40); MCH 25.8 pg (25.7-33.7); MCHC 33.7 g/dl (32.0-35.9); MEAN CELL VOLUME 76.5 fl (80-96); MEAN PLT VOLUME 7.8 fl (7.5-11.1); MONO % 14.3 % (3.8-10.2); NEUT % 54.4 % (42.8-82.8); PLATELET COUNT 187 10^3/uL (134-434); RDW 17.8 % (11.9-15.9); WHITE BLOOD COUNT 4.3 K/mm3 (4.0-10.0)
[2021-11-03 08:59] LABS: CALCIUM 8.8 mg/dL (8.5-10.1)
[2021-11-03 09:02] LABS: BLOOD UREA NITROGEN 16.1 mg/dL (7-18)
[2021-11-03 09:03] LABS: CREATININE 0.7 mg/dL (0.55-1.3)
[2021-11-03] MEDS ORDERED: oxyCODONE HCL 5 MG TABLET PO ONE (09:56)
[2021-11-03] MEDS ORDERED: HYDROCHLOROTHIAZIDE 25 MG TABLET (FP) ONE (10:21)
[2021-11-03] MEDS ORDERED: LOSARTAN POTASSIUM 50 MG TABLET ONE (10:22)
[2021-11-03] MEDS ORDERED: oxyCODONE HCL 5 MG TABLET ONE ×2 (10:22→13:28)
[2021-11-03] MEDS: LOSARTAN POTASSIUM 50 MG TABLET PO SCH (10:25)
[2021-11-03] MEDS: HYDROCHLOROTHIAZIDE 25 MG TABLET (FP) PO SCH (10:25)
[2021-11-03] MEDS ORDERED: ACETAMINOPHEN 1000 MG/100 ML BAG IVPB ONE (13:28)
[2021-11-03] MEDS ORDERED: APIXABAN 5 MG TABLET ONE (15:21)
[2021-11-03] MEDS: APIXABAN 5 MG TABLET PO SCH ×2 (15:26→21:59)
[2021-11-03 16:16] VITALS: BMI 42.4
[2021-11-03] MEDS: oxyCODONE HCL 5 MG TABLET PO PRN (23:11)
[2021-11-04] MEDS: oxyCODONE HCL 5 MG TABLET PO PRN (07:08)
[2021-11-04 08:38] VITALS: BP 148/79; PULSE 67; TEMP 99
[2021-11-04] MEDS ORDERED: ACETAMINOPHEN 1000 MG/100 ML BAG IVPB ONE (08:41)
[2021-11-04] MEDS: HYDROCHLOROTHIAZIDE 25 MG TABLET (FP) PO SCH (09:07)
[2021-11-04] MEDS: LOSARTAN POTASSIUM 50 MG TABLET PO SCH (09:08)
[2021-11-04] MEDS: APIXABAN 5 MG TABLET PO SCH (09:08)
== END 2021-11-04 12:06 | disposition home or self-care (01) | DRG 301 ==
LOC: JER 21:27 → JERBED 11-03 03:41 → J7W 11-03 15:41
PROVIDERS: ADMIT Internal Medicine; ATTEND Internal Medicine
DX: I82.412 Acute embolism and thrombosis of left femoral vein (principal); I82.432 Acute embolism and thrombosis of left popliteal vein; I10 Essential (primary) hypertension; J45.909 Unspecified asthma, uncomplicated; E78.5 Hyperlipidemia, unspecified; Z85.05 Personal history of malignant neoplasm of liver; Z86.711 Personal history of pulmonary embolism
CPT/HCPCS: 36415; 80053; 83735; 84100; 85025; 85610; 85730; 93005; 93010; 93971-TC; 99285-25; C9803-CS; Q0162; U0003; U0005

== ENCOUNTER 2022-01-08 03:54 | Inpatient (IN) | payer OTHER ==
[2022-01-08] MEDS ORDERED: ACETAMINOPHEN 500 MG TABLET (FP) PO ONE (04:09)
[2022-01-08] MEDS ORDERED: IBUPROFEN 600 MG TABLET (FP) PO ONE ×2 (04:09→04:20)
[2022-01-08] MEDS ORDERED: ACETAMINOPHEN 325 MG TABLET (FP) ONE (04:21)
[2022-01-08 05:16] LABS: VENOUS BASE EXCESS 0.3 mmol/L (-2-2); VENOUS O2 SATURATION 63.4 % (70-80); VENOUS PCO2 36.2 mmHg (38-52); VENOUS PH 7.44 (7.310-7.410)
[2022-01-08 05:16] LABS: BASO % 0.1 % (0-2.0); EOS % 2.1 % (0-4.5); HEMATOCRIT 41.9 % (35.4-49); HEMOGLOBIN 13.5 GM/dL (11.7-16.9); LYMPH % 6.3 % (8-40); MCH 25.8 pg (25.7-33.7); MCHC 32.2 g/dl (32.0-35.9); MEAN CELL VOLUME 80.3 fl (80-96); MONO % 5.2 % (3.8-10.2); NEUT % 86.3 % (42.8-82.8); PLATELET COUNT 209 10^3/uL (134-434); RBC 5.21 M/mm3 (4.00-5.60); RDW 18.9 % (11.9-15.9)
[2022-01-08 05:23] LABS: EPI CELLS 7 /uL (0-25.1); HYALINE CASTS 2 /uL (0-3.1); URINE APPEARANCE CLEAR; URINE BACTERIA 265 /uL (0-1359); URINE BILIRUBIN NEGATIVE (NEGATIVE); URINE COLOR YELLOW; URINE GLUCOSE (UA) 3+ (NEGATIVE); URINE KETONE NEGATIVE (NEGATIVE); URINE LEUK ESTERASE TRACE (NEGATIVE); URINE NITRITE NEGATIVE (NEGATIVE); URINE PROTEIN NEGATIVE (NEGATIVE); URINE RBC 14 /uL (0-23.9); URINE UROBILINOGEN 0.2 mg/dL (0.2-1.0); URINE WBC 5 /uL (0-25.8)
[2022-01-08 05:28] LABS: INR 1.09 (0.83-1.09); PROTHROMBIN TIME (PATIENT) 12.5 SEC (9.7-13.0)
[2022-01-08] MEDS ORDERED: morphine SULFATE 4 MG/ML VIAL IVPUSH ONE (05:30)
[2022-01-08 05:32] LABS: ACTIVATED PTT 28.3 SECONDS (25.2-36.5); ALBUMIN 3.4 g/dl (3.4-5.0); BLOOD UREA NITROGEN 19.2 mg/dL (7-18); CALCIUM 8.9 mg/dL (8.5-10.1)
[2022-01-08 05:35] LABS: CREATININE 1.1 mg/dL (0.55-1.3)
[2022-01-08 05:37] LABS: BILIRUBIN,TOTAL 0.3 mg/dL (0.2-1); TOT PROT 7.3 g/dl (6.4-8.2)
[2022-01-08] MEDS ORDERED: SODIUM CHLORIDE 0.9% 500 ML INFUS.BAG IV ONE ×2 (06:48→07:20)
[2022-01-08] MEDS ORDERED: INSULIN REGULAR HUMAN 100 UNITS/ML *VIAL SQ ONE (06:49)
[2022-01-08 07:10] LABS: LACTIC ACID 2.8 mmol/L (0.4-2.0)
[2022-01-08 08:43] LABS: LACTIC ACID 2.6 mmol/L (0.4-2.0)
[2022-01-08] MEDS ORDERED: morphine CARPU-JECT 2 MG/1 ML DISP.SYRIN IVPUSH ONE (11:53)
[2022-01-08] MEDS ORDERED: SODIUM CHLORIDE 1,000 ML IV STA (12:06)
[2022-01-08] MEDS ORDERED: SODIUM CHLORIDE 1,000 ML IV SCH ×2 (12:15→12:25)
[2022-01-08] MEDS: INSULIN SLIDING SCALE (NOVOLOG) 1 VIAL SQ SCH ×2 (17:47→21:46)
[2022-01-08] MEDS: PIPERACILLIN/TAZOB 3.375 GM 3.375 GM in DEXTROSE 5%-WATER - 50 ML IVPB SCH ×2 (17:47→21:35)
[2022-01-08 19:38] VITALS: BMI 46.3
[2022-01-08] MEDS: APIXABAN 5 MG TABLET PO SCH (21:36)
[2022-01-09] MEDS: PIPERACILLIN/TAZOB 3.375 GM 3.375 GM in DEXTROSE 5%-WATER - 50 ML IVPB SCH ×2 (02:35→09:47)
[2022-01-09] MEDS: ACETAMINOPHEN 325 MG TABLET (FP) PO PRN ×3 (02:35→13:46)
[2022-01-09] MEDS: INSULIN SLIDING SCALE (NOVOLOG) 1 VIAL SQ SCH ×2 (06:12→11:41)
[2022-01-09 07:45] VITALS: RESP 20
[2022-01-09] MEDS: APIXABAN 5 MG TABLET PO SCH (09:46)
[2022-01-09 09:54] LABS: BASO % 0.1 % (0-2.0); EOS % 4.3 % (0-4.5); HEMATOCRIT 39.3 % (35.4-49); HEMOGLOBIN 12.8 GM/dL (11.7-16.9); LYMPH % 10.3 % (8-40); MCHC 32.7 g/dl (32.0-35.9); MEAN CELL VOLUME 79.6 fl (80-96); MEAN PLT VOLUME 7.9 fl (7.5-11.1); MONO % 7.2 % (3.8-10.2); NEUT % 78.1 % (42.8-82.8); PLATELET COUNT 170 10^3/uL (134-434); RBC 4.94 M/mm3 (4.00-5.60); RDW 18.6 % (11.9-15.9); WHITE BLOOD COUNT 8.8 K/mm3 (4.0-10.0)
[2022-01-09] MEDS ORDERED: ENOXAPARIN NA (PORCINE) 40 MG/0.4 ML DISP.SYRIN SQ SCH (10:00)
[2022-01-09 10:29] LABS: CALCIUM 8.4 mg/dL (8.5-10.1)
[2022-01-09 10:30] LABS: ALBUMIN 2.9 g/dl (3.4-5.0); BLOOD UREA NITROGEN 11.8 mg/dL (7-18); MAGNESIUM 1.9 mg/dL (1.8-2.4)
[2022-01-09 10:32] LABS: BILIRUBIN,TOTAL 1.2 mg/dL (0.2-1); TOT PROT 6.3 g/dl (6.4-8.2)
[2022-01-09 10:33] LABS: CREATININE 0.8 mg/dL (0.55-1.3); PHOSPHOROUS 2.8 mg/dL (2.5-4.9)
[2022-01-09 16:00] VITALS: BP 156/80; PULSE 82; TEMP 99.3
== END 2022-01-09 17:09 | disposition home or self-care (01) | DRG 194 ==
LOC: JER 03:54 → JERBED 11:21 → J8W 15:43
PROVIDERS: ADMIT Internal Medicine; ATTEND Internal Medicine
DX: J18.9 Pneumonia, unspecified organism (principal); N39.0 Urinary tract infection, site not specified; Z68.42 Body mass index [BMI] 45.0-49.9, adult; E11.65 Type 2 diabetes mellitus with hyperglycemia; I10 Essential (primary) hypertension; E78.5 Hyperlipidemia, unspecified; E66.01 Morbid (severe) obesity due to excess calories; N20.0 Calculus of kidney; R31.9 Hematuria, unspecified
CPT/HCPCS: 0241U-QW; 36415; 71045-TC-FY; 71275-TC; 80053; 81003; 82553; 82803; 82962; 83605; 83735; 84100; 84484; 85025; 85610; 85730; 86850; 86900; 86901; 87040; 87086; 93005; 93010; 93971-TC; 97116-GP; 97161-GP; 99285-25; Q9967

== ENCOUNTER 2022-12-25 19:49 | Emergency (ER) | payer OTHER ==
[2022-12-25 20:15] VITALS: TEMP 98.7; BMI 43.4
[2022-12-25] MEDS ORDERED: FAMOTIDINE 20 MG/50 ML IVPB 20 MG/50 ML MG IVPB ONE ×2 (20:56→21:14)
[2022-12-25] MEDS ORDERED: SUCRALFATE 1 GM/10 ML UNIT DOSE CUPS PO ONE (20:59)
[2022-12-25] MEDS ORDERED: SUCRALFATE 1 GM TABLET (FP) ONE (21:16)
[2022-12-25 21:34] LABS: BASO % 0.1 % (0-2.0); EOS % 6.3 % (0-4.5); HEMATOCRIT 42.6 % (35.4-49); HEMOGLOBIN 14.5 GM/dL (11.7-16.9); LYMPH % 21.7 % (8-40); MCH 28.3 pg (25.7-33.7); MCHC 33.9 g/dl (32.0-35.9); MEAN CELL VOLUME 83.6 fl (80-96); MEAN PLT VOLUME 8.1 fl (7.5-11.1); MONO % 8.9 % (3.8-10.2); PLATELET COUNT 225 10^3/uL (134-434); RDW 15.2 % (11.9-15.9); WHITE BLOOD COUNT 4.5 K/mm3 (4.0-10.0)
[2022-12-25 21:36] LABS: EPI CELLS 30 /uL (0-25.1); HYALINE CASTS 1 /uL (0-3.1); PH,URINE 5.5 (5.0-8.0); URINE APPEARANCE CLEAR; URINE BACTERIA 7 /uL (0-1359); URINE BILIRUBIN NEGATIVE (NEGATIVE); URINE COLOR DK YELLOW; URINE GLUCOSE (UA) NEGATIVE (NEGATIVE); URINE KETONE NEGATIVE (NEGATIVE); URINE LEUK ESTERASE TRACE (NEGATIVE); URINE NITRITE NEGATIVE (NEGATIVE); URINE PROTEIN TRACE (NEGATIVE); URINE RBC 58 /uL (0-23.9); URINE WBC 31 /uL (0-25.8)
[2022-12-25 21:42] LABS: INR 1.17 (0.83-1.09); PROTHROMBIN TIME (PATIENT) 13.5 SEC (9.7-13.0)
[2022-12-25 21:44] LABS: ACTIVATED PTT 32.3 SECONDS (25.2-36.5)
[2022-12-25 21:59] LABS: POTASSIUM 4.5 mmol/L (3.5-5.1)
[2022-12-25 22:02] LABS: ALBUMIN 3.4 g/dl (3.4-5.0); BLOOD UREA NITROGEN 20.3 mg/dL (7-18); CALCIUM 9.6 mg/dL (8.5-10.1)
[2022-12-25 22:04] LABS: BILIRUBIN,DIRECT 0.1 mg/dL (0.0-0.2)
[2022-12-25 22:07] LABS: BILIRUBIN,TOTAL 0.7 mg/dL (0.2-1)
[2022-12-26 00:27] LABS: CALCIUM 9.4 mg/dL (8.5-10.1)
[2022-12-26 00:28] LABS: ALBUMIN 3.2 g/dl (3.4-5.0); BLOOD UREA NITROGEN 21.4 mg/dL (7-18)
[2022-12-26 00:32] LABS: BILIRUBIN,TOTAL 0.6 mg/dL (0.2-1)
[2022-12-26 01:15] VITALS: BP 170/89; PULSE 62; RESP 18
== END 2022-12-26 01:35 | disposition home or self-care (01) ==
LOC: JER 19:49
PROC: 3E033GC Introduction of Other Therapeutic Substance into Peripheral Vein, Percutaneous Approach (ICD-10-PCS; principal; 2022-12-25)
DX: R10.13 Epigastric pain (principal); Z20.822 Contact with and (suspected) exposure to COVID-19
CPT/HCPCS: 0241U-QW; 36415; 71045-TC-FY; 74177-TC; 76705-TC; 80053; 81003; 82248; 83690; 84484; 85025; 85610; 85730; 86850; 86900; 86901; 87086; 93005; 93010; 96365; 99285-25